=== PATIENT | male | born 1965 | race Hispanic/Latino ===

== ENCOUNTER 2018-10-08 10:23 | Emergency (ER) | payer MEDICARE, SELFPAY ==
[2018-10-08 10:25] VITALS: BP 215/102; PULSE 89; RESP 19; TEMP 36.2; O2SAT 98; BMI 33.6
--- NOTE | 2018-10-08 10:56 | ED.VISSUMM ---
- ER Visit Summary Date of Service: 10/08/18 Chief Complaint: Right eye swelling History of Present Illness: The patient is a 53 M presenting for evaluation secondary to right eye swelling. Patient reports that over the course last 3 days he has had progressive swelling of his right eye. He reports it started with his upper lid and is associated with a mild amount of pain and some chills. Denies any foreign bodies or chemical exposure. Patient states that he has been trying multiple different types of compresses including teabags, coffee, potatoes none of these seem to work. He denies any visual changes. Physical Examination: Vital signs notable for hypertension 215/102. Eye exam shows swelling of the patient's right upper and lower lids. No evidence of septal or preseptal cellulitis no pain with extraocular range of motion. Corneas normal to inspection. Pupils are normal. There is evidence of hordeolum with eversion of the patient's upper lid. Test Results: None indicated Emergency Department Course and Treatment: Patient presented secondary to eye swelling. Physical exam shows evidence of some blepharitis with a hordeolum. Patient will be treated with topical antibiotics. Patient was noted to be hypertensive, repeat blood pressure was found to be 156/107. Patient has a history of brain aneurysms with coiling, and is off of his antihypertensives I will place the patient on a course of lisinopril and strongly encouraged follow-up with primary care. Disposition: Discharge Impression: 1. Right-sided blepharitis with hordeolum 2. Hypertension This note was generated with [employer] dictation software. It may contain incorrect words, spelling, and punctuation that were not noted in review of the chart prior to signing ED Disposition - Plan for ED Patient: Disposition: Home or Assisted Living Chief Complaint: Eye Problem Diagnosis: Blepharitis of eyelid of right eye Instructions: ED Inflammation Eyelid Prescriptions: Lisinopril 5 mg PO DAILY #30 tab Referrals: Alvarado Adam MD [Primary Care Provider] - As soon as possible
--- NOTE | 2018-10-08 11:00 | ED.DCSUM_ITS ---
- ER Visit Summary Date of Service: 10/08/18 Chief Complaint: Right eye swelling History of Present Illness: The patient is a 53 M presenting for evaluation secondary to right eye swelling. Patient reports that over the course last 3 days he has had progressive swelling of his right eye. He reports it started with his upper lid and is associated with a mild amount of pain and some chills. Denies any foreign bodies or chemical exposure. Patient states that he has been trying multiple different types of compresses including teabags, coffee, potatoes none of these seem to work. He denies any visual changes. Physical Examination: Vital signs notable for hypertension 215/102. Eye exam shows swelling of the patient's right upper and lower lids. No evidence of septal or preseptal cellulitis no pain with extraocular range of motion. Corneas normal to inspection. Pupils are normal. There is evidence of hordeolum with eversion of the patient's upper lid. Test Results: None indicated Emergency Department Course and Treatment: Patient presented secondary to eye swelling. Physical exam shows evidence of some blepharitis with a hordeolum. Patient will be treated with topical antibiotics. Patient was noted to be hypertensive, repeat blood pressure was found to be 156/107. Patient has a history of brain aneurysms with coiling, and is off of his antihypertensives I will place the patient on a course of lisinopril and strongly encouraged follow- up with primary care. Disposition: Discharge Impression: 1. Right-sided blepharitis with hordeolum 2. Hypertension This note was generated with [employer] dictation software. It may contain incorrect words, spelling, and punctuation that were not noted in review of the chart prior to signing ED Disposition - Plan for ED Patient: Disposition: Home or Assisted Living Chief Complaint: Eye Problem Diagnosis: Blepharitis of eyelid of right eye Instructions: ED Inflammation Eyelid Prescriptions: Lisinopril 5 mg PO DAILY #30 tab Referrals: Alvarado Adam MD [Primary Care Provider] - As soon as possible
[2018-10-08 11:30] VITALS: BP 122/100
== END 2018-10-08 11:43 | disposition home or self-care (01) ==
PROVIDERS: Emergency Provider Emergency Medicine; Family Provider Family Medicine; PCP Family Medicine
DX: H01.00A Unspecified blepharitis right eye, upper and lower eyelids (principal); H00.011 Hordeolum externum right upper eyelid; I10 Essential (primary) hypertension; Z86.79 Personal history of other diseases of the circulatory system; Z79.899 Other long term (current) drug therapy
CPT/HCPCS: 99282

== ENCOUNTER 2019-02-21 13:08 | Emergency (ER) | payer MEDICARE, MEDICAID, SELFPAY ==
[2019-02-21 13:08] VITALS: BP 160/90; PULSE 109; RESP 18; TEMP 36.6; O2SAT 97; BMI 32.5
[2019-02-21 13:11] VITALS: TEMP 36.6
[2019-02-21] MEDS: Morphine 4 MG/ML Syringe IV (13:32)
[2019-02-21] MEDS: Ondansetron 4 MG/2 ML Vial IV (13:32)
--- NOTE | 2019-02-21 13:40 | RAD_ITS ---
STUDY: X-RAY - LEFT HAND REASON FOR EXAM: Male, 54 years old. Metal object injury 3 days ago with pain and swelling TECHNIQUE: 3 view(s) of the hand. COMPARISON: None. FINDINGS: There is joint space narrowing of the radiocarpal articulation consistent with degenerative arthrosis. Normal distal radioulnar joint. Normal visualized carpal bones. Normal carpal articulations Normal carpometacarpal articulation of the thumb. Normal second through fifth carpometacarpal joints. Normal metacarpi. Normal metacarpophalangeal joint of the thumb. 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 Normal proximal and distal phalanges of the thumb. Normal metacarpophalangeal joints of the second through fifth fingers. Normal proximal and distal interphalangeal joints of the second through fifth fingers. Normal phalanges of the second through fifth fingers. Soft tissue swelling. Remote deformity of the ulnar styloid. RAD/Hand Min 3 Views IMPRESSION: No acute osseous injury is evident. Electronically Signed: Pedro Perry MD at 13:57 EDT Tel , Service support ,
[2019-02-21] MEDS: Diphth,Pertuss(Acell),Tet Vac 0.5 ML Vial IM (14:26)
--- NOTE | 2019-02-21 14:38 | ED.DCSUM_ITS ---
History of Present Illness Chief Complaint: Cellulitis Informant: Patient, Significant Other Occurred: Days - 3 to 4 days ago Mechanism/Context: Injury, Puncture Wound Current Severity: 12/07 Maximum Severity: 06/09 Worsened by: Palpation Relieved by: rest Associated Symptoms: Loss of Funtion. Negative for: Parasthesia, Weakness Narrative: Patient is a 54-year-old [id number] male presents with puncture wound sole of the left thumb volar surface near the crease of the MCP joint. He believes there may be a retained metallic foreign body. He attempted to clip the area using nail clippers. Because of reported increased pain, swelling and redness he presents to the emergency department. He denies fever or chills. He is not diabetic. He is on no immunosuppressive meds. Tetanus Immunization: Unknown Prior similar symptoms: No Recent Illness/Hospitalization: No Past Medical History - Allergies and Home Meds Allergies/Adverse Reactions: Allergies No Known Allergies Allergy (Verified 02/21/19 13:10) Primary Care Physician: Luma Thomas DO [Primary Care Provider] - Surgical History: noncontributory Lives: Spouse/ Significant Other Smoking Status: Current every day smoker Alcohol: Rare Review of Systems General: Denies: Chills, Fever, Malaise, Sweats ENT: Denies: Bilateral ear pain, Rhinorrhea Cardiovascular: Denies: Chest pain, Palpitations Respiratory: Denies: Dyspnea, Cough, Dyspnea on exertion Gastrointestinal: Denies: Nausea, Vomiting, Diarrhea Musculoskeletal: Reports: Swelling, Extremity Pain, - - Swelling left thumb and hand radial side. Denies: Myalgias, Arthralgias, Neck pain, Back pain Skin: Reports: Rash. Denies: Wounds Neurological: Denies: Headache, Weakness, Parasthesia Hematologic: Denies: Easy bruising, Easy bleeding Allergy: Denies: Uticaria, Swelling of the mouth Physical Exam Vital Signs/Narrative: Vital Signs Temp Pulse Resp BP Pulse Ox 02/21/19 13:11 97.9 F 02/21/19 13:08 97.9 F 109 H 18 160/90 H 97 Left Elbow: Negative for: Abrasion, Contusion, Deformity, Edema, Hematoma, Limited ROM, - Left Forearm: Negative for: Abrasion, Contusion, Deformity, Edema, Hematoma, Limited ROM, - Left Wrist: Negative for: Abrasion, Contusion, Deformity, Edema, Hematoma, Limit ed ROM, - Left Hand: Edema, - - Patient has full range of motion of the left thumb without pain. There is cellulitis dorsal surface of the left thumb and radial side of the left hand. There is no lymphangitis. There is no epitrochlear x-ray lymphadenopathy. There is maceration of tissue volar surface. Two-point squamation is normal. Capillary refill is normal.. Negative for: Abrasion, Contusion, Deformity, Limited ROM Left Finger: Edema, - - Read description under left hand. Negative for: Abrasion, Contusion, Deformity, Limited ROM General: Well nourished, Well developed Head: Normocephalic, Atraumatic Eyes: Perrl, EOMI. Negative for: Pale conjunctiva, Scleral icterus, - Cardiovascular: Regular rate, Regular rhythm, No murmurs, Normal S1, Normal S2 Respiratory: No distress, CTA bilaterally, Chest nontender Skin: Normal color, Rash - Colitis dorsal surface left thumb and dorsal surface radial side of left hand Neurological: Alert, Oriented x3, Cranial nerves II-XII grossly intact, Normal Strength, Normal Sensation Psychological: Normal affect Diagnostic/Tx/Re-eval Chest X-Ray - ED: Read by ED Physician Three-view x-ray of the left thumb was obtained. There is soft tissue swelling with no subtenons air or foreign body noted. - Medical Decision Making Clinically patient does not have evidence of pyogenic arthritis or tenosynovitis. He does have evidence of cellulitis. Will obtain x-ray to rule out foreign body. Patient was informed of x-ray results. He was informed that he needs an I&D. Written consent was obtained. He was explained risk benefits and given opportunity ask questions. None were asked. Procedures Procedure(s): Patient was prepped draped sterile manner. The area was anesthetized by local infiltration. Incision was made with 15 blade. There was purulent drainage noted. There was also bloody drainage noted. Blunt dissection was undertaken with additional purulent material noted. Cavity was irrigated. Wick was placed. He will receive a dose of antibiotics prior to discharge. Size of cavity 4 cm x 2 cm x 0.5 cm, complex ED Disposition - Plan for ED Patient: Instructions: ED Abscess IandD, Discharge Instructions for Cellulitis Prescriptions: Hydrocodone Bitart/Apap 5-325 [[place] 5MG-325MG] 1 tab PO Q6H PRN PRN 3 Days #10 tab PRN Reason: Pain Smz/Tmp Ds [Bactrim Ds] 1 tab PO BID #14 tab Cephalexin [Keflex] 500 mg PO 4X/DAY #28 cap Referrals: Luma Thomas DO [Primary Care Provider] - Additional Instructions: Return in 2 days to have wound reevaluation and removal of wick. If you develop a fever greater than 100 or shaking chills before 2 days return sooner
[2019-02-21] MEDS: Cephalexin 250 MG Capsule 500 MG PO (15:10)
[2019-02-21] MEDS: HYDROcodone Bitartrate/Apap 5/325 Tablet PO (15:11)
[2019-02-21] MEDS: Smz/Tmp Ds Tablet 1 TABLET PO (15:11)
[2019-02-21 15:19] VITALS: RESP 18; TEMP 36.6
== END 2019-02-21 15:21 | disposition home or self-care (01) ==
LOC: ED 13:58
PROVIDERS: Emergency Provider Emergency Medicine; Family Provider Family Medicine; PCP Family Medicine
DX: L02.512 Cutaneous abscess of left hand (principal); L03.114 Cellulitis of left upper limb; S61.032A Puncture wound without foreign body of left thumb without damage to nail, initial encounter; X58.XXXA Exposure to other specified factors, initial encounter; Y93.9 Activity, unspecified; Y92.9 Unspecified place or not applicable; F17.200 Nicotine dependence, unspecified, uncomplicated
CPT/HCPCS: 10061; 10060; 73130; 90471; 90715; 96374; 96375; 99284; A4216; J2405

== ENCOUNTER 2019-02-23 11:50 | Emergency (ER) | payer MEDICARE, MEDICAID, SELFPAY ==
[2019-02-23 11:51] VITALS: BP 163/87; PULSE 96; RESP 18; TEMP 36.8; O2SAT 96; BMI 32.5
--- NOTE | 2019-02-23 12:35 | ED.VISSUMM ---
- ER Visit Summary Date of Service: 02/23/19 Chief Complaint: Wound check History of Present Illness: The patient is a 54 M with I&D 3 days ago presents for wound check. He is doing well he has no new complaints. Physical Examination: Is evaluated, he has an incision between the first and second digits, it was packed the packing is removed wound appears well there is no signs of cellulitis. Emergency Department Course and Treatment: Patient has a normal exam, I believe he is healing well he is on antibiotics I told him to continue him otherwise he can follow-up referred him. Discharge stable condition Impression: wound Check This note was generated with [employer] dictation software. It may contain incorrect words, spelling, and punctuation that were not noted in review of the chart prior to signing ED Disposition - Plan for ED Patient: Disposition: Home or Assisted Living Instructions: ED Wound Check Post Op No Infec Referrals: Kristofer Huang MD [STAFF PHYSICIAN] - 3-5 Days
== END 2019-02-23 12:51 | disposition home or self-care (01) ==
PROVIDERS: Emergency Provider Emergency Medicine; Family Provider Family Medicine; PCP Family Medicine
DX: Z48.00 Encounter for change or removal of nonsurgical wound dressing (principal); I10 Essential (primary) hypertension; Z79.899 Other long term (current) drug therapy; Z72.0 Tobacco use
CPT/HCPCS: 99282

== ENCOUNTER → 2019-06-16 06:22 | Outpatient (CLI) | payer MEDICARE, MEDICAID, SELFPAY ==
[2019-05-21 09:47] VITALS: BMI 31.1
--- NOTE | 2019-06-16 13:27 | STRESSREP ---
Stress Test Report Date: 06-16-19 Procedure: Exercise tolerance test/imaging study Indications: Chest pain Consent: Per the patient Procedure: The patient exercised on a Andrew protocol for 9 minutes completing Stage III achieving a peak heart rate of 144 bpm (86 % predicted maximal heart rate) with a peak blood pressure 232/90 mmHg and a peak MET capacity of 10 METs. The baseline ECG demonstrated normal sinus rhythm. The peak exercise ECG demonstrated approximately 1 mm of horizontal to downsloping ST segment depression in leads II, III, and aVF with resolution towards baseline beginning by approximately 1 minute in recovery. There were no cardiac dysrhythmias pretest, during exercise, or recovery. The functional capacity was considered good. There was no complaint of chest discomfort during exercise or recovery. The examination was discontinued secondary to dyspnea. Impression: 1. Technically adequate (percent predicted maximal heart rate greater than 85%) exercise tolerance test 2. Peak exercise ECG with approximately 1 mm of horizontal to downsloping ST segment depression in leads II, III, and aVF with resolution towards baseline beginning by approximately 1 minute in recovery 3. There were no cardiac dysrhythmias pretest, during exercise, or recovery 4. Nuclear images pending Myocardial perfusion imaging study: Technique: The patient was injected with 14.3 mCi of technetium 99m Cardiolite and subsequently rest SPECT Cardiolite nuclear imaging was obtained in the horizontal long, vertical long, and short axis views. The patient exercised on a Andrew protocol for 9 minutes completing Stage III achieving a peak heart rate of 144 bpm (86 % predicted maximal heart rate) with a peak blood pressure 232/90 mmHg and a peak MET capacity of 10 METs. The patient was injected with 44.1 mCi of technetium 99m Cardiolite and subsequently stress SPECT Cardiolite nuclear imaging was obtained in the horizontal long, vertical long, and short axis views. A gated Cardiolite study at peak stress was obtained. Interpretation: Rest and stress SPECT Cardiolite nuclear imaging status post realignment, normalization, and attenuation correction, demonstrates the appearance of relative uniform tracer uptake and myocardial perfusion appearing within normal limits. There is end systolic thickening and brightening. The gated Cardiolite study demonstrates myocardial thickening and inward wall motion. The reported LVEF is 47 %. Impression: 1. Rest and stress SPECT Cardiolite nuclear imaging demonstrate relative uniform tracer uptake and myocardial perfusion appearing within normal limits. 2. The gated Cardiolite study reports an LVEF of 47 %. This note was generated with [employer] dictation software. It may contain incorrect words, spelling, and punctuation that were not noted in checking the note before signing.
== END ==
PROVIDERS: Family Provider Family Medicine; PCP Family Medicine; Referring Provider Internal Medicine Cardiovascular Disease; Visit Provider Internal Medicine Cardiovascular Disease
DX: R07.9 Chest pain, unspecified (principal); R00.2 Palpitations; I10 Essential (primary) hypertension; I34.0 Nonrheumatic mitral (valve) insufficiency
CPT/HCPCS: 78452; 93017; A9500; A4216

== ENCOUNTER 2019-06-19 10:09 | Emergency (ER) | payer MEDICARE, MEDICAID, SELFPAY ==
[2019-06-19 09:38] VITALS: BMI 31.1
[2019-06-19 10:11] VITALS: BP 170/97; PULSE 92; RESP 16; TEMP 36.6; O2SAT 98; BMI 31.6
--- NOTE | 2019-06-19 10:36 | RAD_ITS ---
STUDY: X-RAY - LEFT FOOT CLINICAL: Male, 54 years old. Pain TECHNIQUE: 3 view(s) of the foot. COMPARISON: None. FINDINGS: Normal talus, calcaneus, and tarsal bones. Normal visualized subtalar, talonavicular, calcaneocuboid, tarsal and tarsometatarsal articulations. Normal metatarsi. Normal metatarsophalangeal joint of the great toe. Normal tibial and fibular sesamoid bones. Normal interphalangeal joint of the great toe. Normal phalanges of the great toe. Normal second through fifth metatarsophalangeal joints. Normal interphalangeal joints and phalanges of the lesser toes. The soft tissue structures are unremarkable. No plain film evidence of foreign body RAD/Foot min 3 Views IMPRESSION: Normal x-ray examination of the foot. Electronically Signed: Nickolas Ortega MD at 11:01 EDT , Service support ,
--- NOTE | 2019-06-19 10:45 | RAD_ITS ---
STUDY: X-RAY - RIGHT KNEE REASON FOR EXAM: Male, 54 years old. Pain, stiffness TECHNIQUE: 4 view(s) of the knee. COMPARISON: None. FINDINGS: Normal visualized distal femur. Normal visualized proximal tibia and fibula. Normal proximal tibiofibular articulation. There is mild degenerative arthrosis of the medial femorotibial compartment. Normal lateral femorotibial compartment. Normal patellofemoral articulation. The soft tissue structures are unremarkable. RAD/Knee 4 or More Views IMPRESSION: Mild medial compartment arthrosis, no demonstrated fracture or suspicious osseous lesion Electronically Signed: Nickolas Ortega MD at 11:00 EDT , Service support ,
--- NOTE | 2019-06-19 11:04 | ED.DCSUM_ITS ---
History of Present Illness Chief Complaint: Lower Extremity Injury Informant: Patient Onset: Yesterday Narrative: Patient presents to the ED claiming left foot trauma. Yesterday, while wearing his working boots he stepped on 3 nails and claims that the nails pierced thr ough the shoes and pierced his plantar aspect of his left foot. He states that since injury the area has become more swollen and painful. He states that he did recently have tetanus updated approximately 2 months ago after another injury. Patient is also inquiring about right knee pain for the last week. He states that it has been going on for a little bit longer, however a week ago he had a exercise stress test which exacerbated this pain. He has been wearing a knee sleeve since. He denies any blunt trauma or falls. Past Medical History - Allergies and Home Meds Allergies/Adverse Reactions: Allergies No Known Allergies Allergy (Verified 06/19/19 10:11) Primary Care Physician: Luma Valenzuela DO [Primary Care Provider] - Surgical History: noncontributory Smoking Status: Current every day smoker Review of Systems General: Denies: Chills, Fever, Sweats Eyes: Denies: Visual changes - bilaterally, Diplopia ENT: Denies: Rhinorrhea, Sore throat Cardiovascular: Denies: Chest pain, Palpitations Respiratory: Denies: Dyspnea, Cough, Dyspnea on exertion Gastrointestinal: Denies: Abdominal pain, Nausea, Vomiting, Diarrhea, Melena, Hematochezia Genitourinary: Denies: Dysuria, Hematuria, Frequency Musculoskeletal: Reports: - - Left foot pain, right knee pain.. Denies: Back pain, Extremity Pain Skin: Denies: Rash, Wounds Neurological: Denies: Headache, Weakness, Numbness Psych: Denies: Suicidal thoughts Physical Exam Vital Signs/Narrative: Vital Signs Temp Pulse Resp BP Pulse Ox 06/19/19 10:11 98 F 92 16 170/97 H 98 General: Well nourished, Well developed, No Acute Distress Head: Normocephalic, Atraumatic Eyes: Perrl, EOMI ENT: Moist mucous membranes, No rhinorrhea Neck: Supple, Nontender Cardiovascular: Regular rate, Regular rhythm, No murmurs Respiratory: No distress, CTA bilaterally, Chest nontender Abdomen: Soft, Nontender, Nondistended, Normal bowel sounds Back: Nontender, Normal Inspection Extremities: Nontender, No edema, - - Tenderness to palpation over plantar aspect of left foot over the forefoot. I do not appreciate any erythema or significant edema. No obvious entry point of reported nail wounds. No fluctuance. Crepitus with range of motion of right knee. Full active and passive range of motion of right knee. No ligamentous laxity. No bony tenderness. Skin: Normal color, No rash Neurological: Alert, Oriented x3, Cranial nerves II-XII grossly intact, Normal Strength, Normal Sensation Psychological: Normal affect, Normal Mood Diagnostic/Tx/Re-eval - Medical Decision Making Patient presents to the ED with primary complaint of trauma to his left foot last night. Physical exam is fairly unremarkable. There is one area on the plantar aspect of his left foot which may have been an entry point for suspected needle puncture. His tetanus is up-to-date. No significant signs or symptoms of cellulitis. X-ray of left foot and right knee are unremarkable. At this time, I think it is safe for the patient be discharged home. His reports of nail puncture while wearing a shoe he will be placed on a course of prophylactic ciprofloxacin. He was advised to follow-up with PCP if symptoms persist or worsen. Educated on signs/symptoms to return to the ED. He was provided discharge instructions and agreeable to plan. Impression: Left foot puncture wound. Right knee pain. Disposition: Home stable ED Disposition - Plan for ED Patient: Disposition: Home or Assisted Living Diagnosis: Puncture wound of foot Instructions: PUNCTURE WOUND, Foot Prescriptions: Ciprofloxacin [Cipro] 500 mg PO BID #14 tab Prescription Printed Referrals: Luma Valenzuela DO [Primary Care Provider] -
[2019-06-19] MEDS: Ciprofloxacin 250 MG Tablet 500 MG PO (12:18)
[2019-06-19] MEDS: Acetaminophen 500 MG Tablet 1000 MG PO (12:18)
[2019-06-19 12:20] VITALS: BP 137/62; PULSE 84; RESP 16; O2SAT 97
== END 2019-06-19 12:22 | disposition home or self-care (01) ==
PROVIDERS: Emergency Provider Physician Assistant; Family Provider Family Medicine; PCP Family Medicine
DX: S91.332A Puncture wound without foreign body, left foot, initial encounter (principal); M25.561 Pain in right knee; W45.0XXA Nail entering through skin, initial encounter; Y93.9 Activity, unspecified; Y92.9 Unspecified place or not applicable; F17.200 Nicotine dependence, unspecified, uncomplicated; R94.39 Abnormal result of other cardiovascular function study; R07.9 Chest pain, unspecified; I10 Essential (primary) hypertension
CPT/HCPCS: 36415; 71046; 73564; 73630; 80048; 85027; 85610; 85730; 99283

== ENCOUNTER 2019-06-23 08:12 | Day surgery (SDC) | payer MEDICARE, MEDICAID, SELFPAY ==
[2019-05-21 09:47] VITALS: BMI 31.1
--- NOTE | 2019-06-19 09:52 | RAD_ITS ---
STUDY: X-RAY CHEST REASON FOR EXAM: Male, 54 years old. Pre-op for heart catheter TECHNIQUE: PA and lateral views of the chest. COMPARISON: 2011 FINDINGS: Monitoring devices noted over the heart The lungs are clear and expanded. There is no demonstrated pleural abnormality. Normal size heart. Normal mediastinum and chester. Normal visualized pulmonary arteries. Normal visualized aortic arch and descending thoracic aorta. Normal visualized thoracic spine. Normal visualized ribs, clavicles, and shoulders. There is no demonstrated abnormality of the visualized soft tissue structures of the upper abdomen. RAD/Chest PA and Lateral IMPRESSION: Normal x-ray examination of the chest. Electronically Signed: Nickolas Ortega MD at 10:34 EDT , Service support ,
[2019-06-19 09:58] LABS: Hematocrit 42.2 % (40-54); Mean Corp Hgb Conc 33.2 g/dL (32-36); Mean Corpuscular Hgb 33.2 pg (27.0-32.0); Mean Platelet Vol. 9.3 fl (6.2-12.0); Platelet Count 290 K/mm3 (150-450); RBC Distribution Width CV 11.6 % (11.6-14.6); RBC Distribution Width SD 42.4 fl (35.1-43.9); Red Blood Count 4.22 M/mm3 (4.6-6.2); White Blood Count 11.5 K/mm3 (4.4-11.0)
[2019-06-19 10:07] LABS: Prothrombin Time (Protime)PT. 12.8 SECONDS (11.7-14.9)
[2019-06-19 10:08] LABS: Partial Thromboplast Time 29.2 Seconds (24.1-36.2)
[2019-06-19 10:26] LABS: Anion Gap 6 (5-15); BUN 15 mg/dL (7-18); BUN/Creat Ratio 17.2 RATIO (10-20); Calcium,Total 8.9 mg/dL (8.5-10.1); Chloride 109 mmol/L (98-107); Creatinine, Serum 0.87 mg/dL (0.70-1.30); EST Glomerular Filtration Rate 97 mL/min (>60); Est Glom Filt Rate - Afr Amer 117 mL/min (>60); Glucose 106 mg/dL (74-106); Potassium 3.9 mmol/L (3.5-5.1); Sodium Level 141 mmol/L (136-145)
--- NOTE | 2019-06-23 07:59 | PCM.HP.BLA ---
Problem List (1) Abnormal stress test Status: Acute (2) Chest pain Status: Chronic (3) Non-rheumatic mitral regurgitation Status: Chronic (4) Essential hypertension Status: Chronic (5) Tobacco use disorder Status: Chronic (6) Brain aneurysm Status: Chronic Comment: x2 History and Physical Date of Admission: 06/23/19 [facility] [address] [place] [address] OFFICE VISIT Date of Service: 05/21/19 MR#: [id number] Acct: [id number] Name: JESUS DUNBAR Rep #: [id number] : 1965 Provider: Derek Paula MD Age/Sex: 54/M Location: [facility] Status: Signed [facility] History of Present Illness Details: This is a 54-year-old white male who presents today for cardia vascular consultation based upon concerns of chest discomfort and palpitations and an abnormal transthoracic echocardiogram superimposed upon a history of underlying cerebral vessel aneurysm status post coil type procedures. He has had a history of chest discomfort. He states his chest feels tight and with increased pressure at times. It radiates to his left scapular area. He notes sometimes if he belches he feels better. The symptoms wax and wane. They may or may not be associated with shortness of breath at times. He has had no acute nausea emesis or diaphoresis. There is been no near syncope or syncope. He is undergone noninvasive evaluation in the past. In 2008 he had a treadmill stress test performed. According to report this was negative. In [address] scan performed. According to report he had an unremarkable noncontrast CT scan examination of the chest. More recently in April of this year he had through the [facility] system 80 transthoracic echocardiogram performed. His left ventricle was normal with an LVEF of 56%. He had mild concentric LVH. There was report of mild MR. He did have an ECG performed today in the office. He was noted to have sinus rhythm with no acute ECG abnormalities. He states he also has palpitations. He notes he wakes up from sleep with his heart going fast. This does not occur every 24-48 hours. He believes it is been occurring monthly though for potentially the last 3 months. He states he was evaluated for his cerebral aneurysm last year at [facility] in [place]. He states he is gone through multiple invasive studies. He was told last year that everything was stable after many years of observation and he required no further follow-up. He was told he could resume activities as tolerated. Intake Vital Signs 05/21/19 Height 5 ft 9 in 05/21/19 Weight: 211 lb 05/21/19 Body Mass Index (BMI) 31.1 05/21/19 Blood Pressure 130/88 H 05/21/19 Blood Pressure Location Lt brachial 05/21/19 Respiratory Rate 16 05/21/19 Pulse Rate 80 05/21/19 Pulse Source Auscultation Intake Visit Reasons: ENLARGED HEART/ REF. SHEETZ Heeler Required: No Accompanied by: Allergies No Known Allergies Allergy (Verified 05/21/19 09:47) Medications Atorvastatin Calcium 40 mg PO QHS 02/21/19 [History Confirmed 05/21/19] Clopidogrel Bisulfate [Clopidogrel] 75 mg PO DAILY 02/21/19 [History Confirmed 05/21/19] Lisinopril 40 mg PO DAILY 02/21/19 [History Confirmed 05/21/19] [facility] Medical History Brain aneurysm (Chronic) Non-rheumatic mitral regurgitation (Chronic) Essential hypertension (Chronic) Tobacco use disorder (Chronic) History of intracranial hemorrhage (Inactive) Family History Father CAD (coronary artery disease) Myocardial infarction Brain aneurysm Brother Brain aneurysm Social History (Updated 05/21/19 @ 13:03 by Derek Paula MD) Smoking Status: Current every day smoker alcohol intake: current details: occasional substance use type: does not use caffeine: No ROS Const Const: Negative for fatigue, weakness, frequent falls, excessive sweating, weight gain or weight loss Eyes Eyes: Negative for transient loss of vision, blurry vision or change in vision ENT ENT: Negative for dizziness or balance problems Cardio Chest Pain: No Palpitations: Yes (occasional; wakes from sleep) feels like its: fast Edema: None Muscle aches with walking: None Resp Respiratory: Positive for SOB with activity (occasional climbing stairs); negative for SOB at rest GI GI: Negative vomiting or vomiting blood/hematemesis : Negative for hematuria Musc Musc: Positive for muscle aches/ myalgia (Lt shoulder pain; under shoulder blade); negative for muscle weakness, joint pain or balance problems Skin Skin: Negative non-healing lesions or rash Neuro Neuro: Negative for dizziness, lightheadedness, orthostatic symptoms, frequent falls, weakness or blurry vision Jeremy Hematologic/Lymphatic: Negative for easy bleeding Endo Endo: Negative for fatigue or excessive sweating Psych Psych: Negative for anxiety or depression Allergy Allergy/Immunology: Negative for hives, Negative for rash Cardiology Exam Const Appearance: cooperative, healthy appearing, comfortable, no acute distress, well developed and well groomed Nutritional Appearance: overweight Orientation: alert, awake and oriented x3 Head Head: normal to inspection, normocephalic and atraumatic Ears: hearing grossly normal bilaterally Nose: external nose normal Face and Sinus: face symmetric Mouth: oral mucosae normal Teeth and gingiva: fair dentition Eyes Eyelids: eyelids normal Conjunctivae: conjunctivae normal Pupils: PERRL EOM: EOM intact bilaterally Neck Neck: normal visual inspection and full ROM Carotids: normal carotid upstroke Chest Chest inspection: normal inspection of the chest, symmetric chest movement and normal respiratory effort Auscultation: Bilateral: Clear to Auscultation Cardio Palpation: normal PMI Rate: regular rate Rhythm: regular rhythm Heart sounds: S1 normal and S2 normal GI GI: normal to inspection, soft and bowel sounds present Neuro General: alert, awake, oriented x3 and moves all extremities Skin Skin: no rashes or lesions noted Extremities Pulses: Normal: Right Radial Pulse, Left Radial Pulse Lower Extremity Edema: None: Bilateral Psych Psychological: normal affect Assessment & Plan 1. Nonrheumatic mitral valve insufficiency I34.0 Plan At the present time he will undergo further evaluation. This will include the stress imaging study. Depending upon the findings he may or may not need further cardiac diagnostic studies and/or therapeutic intervention. Orders Orders: 12 [address] [facility] Today 30 Day Event Recorder [employer] Games-Up Today Nuclear Stress Test - Treadmil Today 2. Palpitations R00.2 Plan He will have a 30-day ambulatory event monitor and attempt to correlate his symptoms with his underlying cardiac rate and rhythm. Orders Orders: 30 Day Event Recorder Hook-Up Today Nuclear Stress Test - Treadmil Today 3. Essential hypertension I10 Plan He will continue medical management. Orders Orders: 12 Lead [address] performed by [facility] Today 30 Day Event Recorder [employer] Today Nuclear Stress Test - Treadmil Today 4. Brain aneurysm I67.1 x2 Plan He states he no longer requires follow-up with his neurology/neurosurgical/interventional physicians regarding this. 5. Tobacco use disorder F17.200 Plan He was encouraged to avoid tobacco intake. Plan Detail Other Orders Orders: 30 Day Event Recorder Hook-Up Today R07.9 Nuclear Stress Test - Treadmil Today R07.9 Additional Comments The above was discussed with the patient and his spouse. He was agreeable to this approach. Thank you for allowing me to participate in the care of your patient. Please don't hesitate to call if any issues arise. This note was generated using a voice recognition system and there may be incorrect words, spelling or punctuation that were not noted when reviewing the office note prior to saving. Follow Up 6 Weeks (PFM/MM/) Coding Level of Care Code Off vis,new,level 5 Diagnoses Nonrheumatic mitral valve insufficiency I34.0 Palpitations R00.2 Essential hypertension I10 Brain aneurysm I67.1 Tobacco use disorder F17.200 Coding Level of Care Code Off vis,new,level 5 Diagnoses Nonrheumatic mitral valve insufficiency I34.0 Palpitations R00.2 Essential hypertension I10 Brain aneurysm I67.1 Tobacco use disorder F17.200 Supplemental Info Supplemental Information Diagnostics Electrocardiogram 05/21/19 05/21/19 1303 <Electronically signed by Derek Paula MD> Date Derek Paula MD Cosigner Signature: Date (if applicable) CC: Luma Thomas, ~ I have examined the patient the following changes are noted: The patient has undergone further evaluation with an exercise tolerance test/imaging study. The results are as noted below. Stress Test Report Date: 06-16-19 Procedure: Exercise tolerance test/imaging study Indications: Chest pain Consent: Per the patient Procedure: The patient exercised on a Andrew protocol for 9 minutes completing Stage III achieving a peak heart rate of 144 bpm (86 % predicted maximal heart rate) with a peak blood pressure 232/90 mmHg and a peak MET capacity of 10 METs. The baseline ECG demonstrated normal sinus rhythm. The peak exercise ECG demonstrated approximately 1 mm of horizontal to downsloping ST segment depression in leads II, III, and aVF with resolution towards baseline beginning by approximately 1 minute in recovery. There were no cardiac dysrhythmias pretest, during exercise, or recovery. The functional capacity was considered good. There was no complaint of chest discomfort during exercise or recovery. The examination was discontinued secondary to dyspnea. Impression: 1. Technically adequate (percent predicted maximal heart rate greater than 85%) exercise tolerance test 2. Peak exercise ECG with approximately 1 mm of horizontal to downsloping ST segment depression in leads II, III, and aVF with resolution towards baseline beginning by approximately 1 minute in recovery 3. There were no cardiac dysrhythmias pretest, during exercise, or recovery 4. Nuclear images pending Myocardial perfusion imaging study: Technique: The patient was injected with 14.3 mCi of technetium 99m Cardiolite and subsequently rest SPECT Cardiolite nuclear imaging was obtained in the horizontal long, vertical long, and short axis views. The patient exercised on a Andrew protocol for 9 minutes completing Stage III achieving a peak heart rate of 144 bpm (86 % predicted maximal heart rate) with a peak blood pressure 232/90 mmHg and a peak MET capacity of 10 METs. The patient was injected with 44.1 mCi of technetium 99m Cardiolite and subsequently stress SPECT Cardiolite nuclear imaging was obtained in the horizontal long, vertical long, and short axis views. A gated Cardiolite study at peak stress was obtained. Interpretation: Rest and stress SPECT Cardiolite nuclear imaging status post realignment, normalization, and attenuation correction, demonstrates the appearance of relative uniform tracer uptake and myocardial perfusion appearing within normal limits. There is end systolic thickening and brightening. The gated Cardiolite study demonstrates myocardial thickening and inward wall motion. The reported LVEF is 47 %. Impression: 1. Rest and stress SPECT Cardiolite nuclear imaging demonstrate relative uniform tracer uptake and myocardial perfusion appearing within normal limits. 2. The gated Cardiolite study reports an LVEF of 47 %. Status post review of the patient's case it was recommended to proceed with further evaluation with diagnostic cardiac catheterization. The procedure risks have been discussed with the patient. He is agreeable to this approach. This note was generated using a voice recognition system and there may be incorrect words, spelling or punctuation that were not noted when reviewing the office note prior to saving.
[2019-06-23 08:47] VITALS: BMI 31.8
--- NOTE | 2019-06-25 09:59 | CL.D_ITS ---
Patient Name: JESUS DUNBAR Study Date: 06/23/2019 Performing: Derek Paula MD Ht: 68.89 inches 175 cm : 1965 Wt: 209.48 lbs 95.02 kg Age: 54 Gender: male BSA: 2.1 PROCEDURE(S) PERFORMED XM02-FXQ/COR/LV CLINICAL PROFILE AND INDICATIONS Indications: Suspected CAD Heart Failure: None Stress/Imaging Standard Exercise Stress Test: Yes Result: PositiveStress Test with SPECT MPI: Neg ative Angina Classification Anginal Classification w/in 2 Weeks: CCS III CAD Presentations: Stable angina. CONCLUSIONS Elevated Left Ventricular End Diastolic Pressure Normal LV size, wall motion,and systolic function LVEF: by LV gram 60 % Normal coronary arteries RECOMMENDATIONS Risk factor modification Medical therapy DESCRIPTION OF PROCEDURE The patient arrived to the procedure lab. The risks and benefits of the procedure as well as a full d escription of our services here and current unavailability of surgical backup were fully explained to the patient and/or their significant other prior to the catheterization. The Timeout was completed, verifying the correct patient and procedure. The patient's procedural site was prepped and draped in the usual fashion. Local anesthetic was given subcutaneously to right radial region with Lidocaine 2% . Using a modified Seldinger technique, arterial access was obtained via the right radial artery, a 6 Fr sheath was inserted. Left Coronary Artery selective angiography was performed in multiple views u sing a 5 Fr. 4.0 [place] catheter. Right Coronary Artery selective angiography was then performed in mu ltiple views using a 5 Fr. 4.0 [place] catheter. Left Ventriculography was performed in FORTE projection using a 5 Fr. [place] catheter. LV to AO pullback pressures were then recorded.The arterial sheath was pulled and a TR Band was applied for hemostasis CORONARY ANGIOGRAPHY DOMINANCE: Left Dominant LEFT HEART ASSESSMENT Left Ventricular Ejection Fraction: by LV Gram 60 % Normal LV wall motion Elevated Left Ventricular End Diastolic Pressure LVEDP: 39 mmHg LEFT MAIN: Angiographically normal LEFT ANTERIOR DESCENDING ARTERY: Angiographically normal CIRCUMFLEX ARTERY: Angiographically normal RIGHT CORONARY ARTERY: Angiographically normal VALVE FINDINGS: Normal Aortic Valve function Normal Mitral Valve function AORTIC ROOT: Angiographically normal COMPLICATIONS No Complications PROCEDURE MEDICATIONS Versed 1 mg IV Fentanyl 50 mcg IV Oxygen: 2 L/min via nasal cannula Heparin given IA 06/23/2019 10:01:10 Verapamil 2.5mg, Ntg 100mcgs, 2000 units of Heparin given IA 06/23/2019 10:01:10 SUMMARY OF HEMODYNAMIC DATA Time AIR REST ECG 08:50:07 AO 147/102 (125) SA 10:06:10 LV 167/5, 37 10:12:34 LV 167/6, 39 10:12:40 LV 165/7, 38 10:13:21 LV 167/6, 36 10:13:28 LVp 166/4, 36 10:13:39 AOp 164/96 (126) 10:13:44 Signed By Derek Paula MD On 06/23/2019 10:32:16 AM Derek Paula MD
== END 2019-06-23 12:05 | disposition home or self-care (01) ==
LOC: CLSP 08:13
PROVIDERS: Family Provider Family Medicine; PCP Family Medicine; Referring Provider Internal Medicine Cardiovascular Disease; Visit Provider Internal Medicine Cardiovascular Disease
DX: R94.39 Abnormal result of other cardiovascular function study (principal); R07.89 Other chest pain; R00.2 Palpitations; I34.0 Nonrheumatic mitral (valve) insufficiency; I67.1 Cerebral aneurysm, nonruptured; I10 Essential (primary) hypertension; Z79.02 Long term (current) use of antithrombotics/antiplatelets; Z79.899 Other long term (current) drug therapy; F17.200 Nicotine dependence, unspecified, uncomplicated
CPT/HCPCS: 36415; 71046; 80048; 85027; 85610; 85730; 93458; 99152; 99153; J7040; Q9967; C1769; C1894

== ENCOUNTER 2019-12-01 12:41 | Emergency (ER) | payer MEDICARE, MEDICAID, SELFPAY ==
[2019-07-07 08:31] VITALS: BMI 32.6
[2019-12-01 12:42] VITALS: BP 166/101; PULSE 108; RESP 16; TEMP 36.8; O2SAT 94; BMI 33.7
== END 2019-12-01 15:03 | disposition left against medical advice (07) ==
LOC: ED 13:43
PROVIDERS: Emergency Provider Emergency Medicine; PCP Family Medicine
DX: Z53.21 Procedure and treatment not carried out due to patient leaving prior to being seen by health care provider (principal)

== ENCOUNTER 2022-02-08 11:06 | Emergency (ER) | payer MEDICARE, SELFPAY ==
[2022-02-08 11:07] VITALS: BP 167/86; PULSE 94; RESP 14; TEMP 36.7; O2SAT 96; BMI 29.6
--- NOTE | 2022-02-08 11:24 | EDS_ITS ---
HPI <SALVADOR Lew - Last Filed: 02/08/22 11:33> History of Present Illness Chief Complaint: Eye Problem Narrative Narrative: 57-year-old male with history of hypertension, brain aneurysm, hyperlipidemia, tobacco use presents the emergency department with a red right eye. Patient states he woke up 2 days ago and noticed that the white of his eye was red on the inner part of his right eye. Over the last couple days, patient was lifting heavy furniture helping someone move, patient also drank heavily, was not taking his medications as prescribed and was having spikes in his blood pressure, as well as smoking marijuana and having coughing fits. Patient denies any visual changes, patient denies any headache, nausea vomiting. Patient denies any weaknesses in upper or lower extremities. PFSH <SALVADOR Lew - Last Filed: 02/08/22 11:33> PFSH Medical History (Updated 02/08/22 @ 11:32 by SALVADOR Lew) Brain aneurysm Essential hypertension History of intracranial hemorrhage Non-rheumatic mitral regurgitation Tobacco use disorder Home Medications atorvastatin 40 mg PO QHS 02/21/19 [History Last Taken Unknown] clopidogrel 75 mg PO DAILY 02/21/19 [History Last Taken 06/23/19] lisinopril 40 mg PO DAILY 02/21/19 [History Last Taken 06/23/19] Allergy/AdvReac Type Severity Reaction Status Date / Time No Known Allergies Allergy Verified 02/08/22 11:09 Family History Father CAD (coronary artery disease) Myocardial infarction Brain aneurysm Brother Brain aneurysm Surgical History History of left heart catheterization (LHC) (~06/25/19) Social History (Updated 07/07/19 @ 11:15 by Maureen LOTT, PA) Smoking Status: Unknown if ever smoked alcohol intake: current details: occasional substance use type: does not use caffeine: No ROS <SALVADOR Lew - Last Filed: 02/08/22 11:33> ROS ED ROS Narrative Constitutional: Negative for fever, chills, weight loss, weakness Eyes: Negative for vision loss, vision change, double vision ENT: Negative for any sore throat, ear pain, congestion. Positive for redness to the right eye Cardiovascular: Negative for any chest pain, tightness, palpitations, racing heartbeat Respiratory: Negative for any cough, sputum production, hemoptysis, shortness of breath, shortness of breath on exertion, orthopnea Gastrointestinal: Negative for any abdominal pain, nausea, vomiting, diarrhea, constipation, blood in stool, blood in vomit : Negative for any urinary frequency, incontinence, dysuria, retention, blood in urine Muscle skeletal: Negative for any muscle joint pain, stiffness, myalgias, arthralgias, neck pain, back pain Neurological: Negative for any headache, dizziness, syncope, numbness or tingling Skin: Negative for any rashes, lumps, itching, abrasions, lacerations Psychiatric: Negative for any depression, anxiety, stress, suicidal ideation, homicidal ideation Hematologic: Negative for any easy bruising, excessive bruising, easy bleeding Allergies: Negative for any eczema, hives, rash EXAM <SALVADOR Lew - Last Filed: 02/08/22 11:33> Physical Exam Narrative Exam Narrative: Vital signs reviewed. HEET: Head normocephalic atraumatic, TMs clear bilaterally. Posterior pharynx is clear, moist mucous membranes. Nares clear bilaterally. Pupils are equal round reactive to light. Negative for any hematoma, septal hematoma. Patient does have what appears to be a subconjunctival hemorrhage to the medial aspect of the right eye. EOMs are intact. Patient has no pain, visual acuity was unremarkable. Neck: Supple with no lymphadenopathy or tenderness. No signs of meningismus, negative jolt sign. Cardiac: Regular rate and rhythm no murmurs gallops or rubs, equal peripheral pulses bilaterally. Respiratory: Lungs clear to auscultation bilaterally. No chest tenderness. Abdomen: Soft, nontender, nondistended. No abdominal bruit or pulsatile masses. No hepatosplenomegaly Extremities: No peripheral edema, no signs of gross trauma or deformity. Active full range of motion of all extremities. Neuro: Cranial nerves II through XII intact, no focal neurological deficits. Skin: Clean dry and intact with no rash, purpura, petechiae, vesicles or pustules. Backslash flank: No CVA tenderness, no midline spinal tenderness, no deformity. Psych: Normal mood and affect. No SI, HI or acute psychosis. Const Vital Signs: 02/08/22 11:07 Temperature 98.0 F Temperature Source Temporal Pulse Rate 94 Respiratory Rate 14 Blood Pressure 167/86 H Blood Pressure Mean 113 Pulse Ox 96 Oxygen Delivery Method Room Air Positive well nourished and well developed General Appearance ED: well developed [facility] <SALVADOR Lew - Last Filed: 02/08/22 11:33> [facility] Narrative Medical decision making narrative: Patient appears well, patient appears nontoxic, vital signs are stable. Patient presents to the emergency department with complaints of a red eye that is concerning. Patient's physical examination is consistent with a conjunctival hemorrhage, patient did multiple things of the last couple days it could have caused this. This includes heavy lifting, heavy drinking, his blood pressure medicine properly. Patient feels much better after evaluation. Visual acuity was obtained, this was normal. Patient instructed to stop smoking marijuana, he instructed take his blood pressure medicine as prescribed. Instructed to follow-up with his PCP. Patient stable for discharge <Jae Willis MD - Last Filed: 02/08/22 12:04> [facility] Narrative Medical decision making narrative: I have personally performed a face to face assessment of the patient and have reviewed the FRANCISCO Note. I performed a substantive portion of the visit including all aspects of the following. My quintanilla findings include: History is lifting heavy objects, coughing after smoking, history of high blood pressure and Plavix use. Noticed redness to right medial eye yesterday. Exam is afebrile. Vital signs noted. Positive subconjunctival hemorrhage right medial sclera. PERRL, EOMI Medical Decision Making: I do not feel that imaging is indicated. Patient was reassured. He was told not to forego his antihypertensives. Follow-up primary care. Other additions or changes: [None] Discharge Plan Triage Chief Complaint: Eye Problem ED Midlevel Provider: Derek Lyn ED Provider: Jae Willis Dx/Rx/DC Orders Clinical Impression: Subconjunctival hemorrhage, non-traumatic Instructions: ED Subconjunctival Hemorrhage Prescriptions: No Action atorvastatin 40 MG tablet 40 mg PO QHS RF: 0 clopidogrel 75 MG tablet 75 mg PO DAILY RF: 0 lisinopril 40 MG tablet 40 mg PO DAILY RF: 0 Primary Care Provider: Luma Valenzuela Referrals: Luma Valenzuela DO [Primary Care Provider] - Activity Restrictions/Additional Instructions: Please take your blood pressure medicine as prescribed. Please follow-up with your PCP. Print Language: Pakistani Disposition Disposition: Home, Self Care Discharge Date/Time: 02/08/22 11:56
[2022-02-08 11:56] VITALS: BP 155/76; PULSE 72; RESP 14; TEMP 36.9; O2SAT 100
== END 2022-02-08 11:56 | disposition home or self-care (01) ==
LOC: ED 11:52
PROVIDERS: Emergency Provider Emergency Medicine; PCP Family Medicine; Visit Provider Emergency Medicine
DX: H11.31 Conjunctival hemorrhage, right eye (principal); F12.10 Cannabis abuse, uncomplicated; E78.5 Hyperlipidemia, unspecified; I10 Essential (primary) hypertension; Z79.899 Other long term (current) drug therapy; Z79.02 Long term (current) use of antithrombotics/antiplatelets; I34.0 Nonrheumatic mitral (valve) insufficiency
CPT/HCPCS: 99283

== ENCOUNTER 2023-09-01 08:42 | Emergency (ER) | payer MEDICARE, MEDICAID, SELFPAY ==
[2023-09-01 08:44] VITALS: BP 165/83; PULSE 97; RESP 18; TEMP 36.1; O2SAT 96; BMI 31.8
--- NOTE | 2023-09-01 09:34 | EX.ED.DYSGE1 ---
HPI History of Present Illness Chief Complaint: Ear Problem Informant: patient Onset/Context/Timing Onset: Days (10) Context: Gradual Onset Timing: Continuous Quality: Stabbing Location: Left ear Worsened by: Nothing Relieved by: Drainage Narrative Narrative: Patient presents with left ear pain and drainage that has been getting worse over the past 10 days. Patient states she recently completed a course of amoxicillin for the ear infection. Patient states this has not helped. Patient describes his pain as stabbing. Patient admits to some drainage from his left ear. Patient states that when the ear drains it feels better. Patient denies any fevers or chills. Patient does admit to a sore throat and rhinorrhea. Patient states his pain does radiate into his jaw. [facility] Medical History (Updated 09/01/23 @ 10:[address] Javi Ortiz DO) Brain aneurysm Essential hypertension History of intracranial hemorrhage Non-rheumatic mitral regurgitation Tobacco use disorder Home Medications atorvastatin 40 mg tablet 40 mg PO QHS 02/21/19 [History Last Taken Unknown] clopidogrel 75 mg tablet 75 mg PO DAILY 02/21/19 [History Last Taken 06/23/19] lisinopril 40 mg tablet 40 mg PO DAILY 02/21/19 [History Last Taken 06/23/19] ciprofloxacin 0.2 %-hydrocortisone 1 % ear drops,suspension (Cipro HC) 3 drp LEFT EAR BID 7 days #10 mL 09/01/23 [Rx Last Taken Unknown] Allergy/AdvReac Type Severity Reaction Status Date / Time No Known Allergies Allergy Verified 09/01/23 08:44 Family History Father CAD (coronary artery disease) Myocardial infarction Brain aneurysm Brother Brain aneurysm Surgical History History of left heart catheterization (LHC) (~06/25/19) Social History Smoking Status: Unknown if ever smoked alcohol intake: current details: occasional substance use type: does not use caffeine: No ROS ROS ED Constitutional Constitutional ED: Denies chills or fever(s) Eyes Eyes: Denies blurry vision or change in vision ENT ENT ED: Reports ear pain left, rhinorrhea and sore throat Cardiovascular Cardiovascular: Denies chest pain or palpitations Respiratory/Chest Respiratory/Chest: Denies cough or dyspnea Gastrointestinal Gastrointestinal: Denies nausea or vomiting Genitourinary Genitourinary ED: Denies dysuria or hematuria Musculoskeletal Musculoskeletal: Denies back pain or neck pain Integumentary Denies abscess or rash Neurologic Neurologic: Denies headache(s) or weakness Allergic/Immunologic Allergic/Immunologic ED: Denies mouth swelling or urticaria EXAM Physical Exam Const Vital Signs: 09/01/23 08:44 Temperature 96.9 F L Temperature Source Temporal Pulse Rate 97 Respiratory Rate 18 Blood Pressure 165/83 H Blood Pressure Mean 110 Pulse Ox 96 Oxygen Delivery Method Room Air Positive well nourished and well developed General Appearance ED: well developed and NAD HEENT Reports moist mucous membranes Neck supple and no JVD Neck Narrative: There is edema and erythema of the left external auditory canal. Tympanic membrane was not visualized due to the edema. The right external auditory canal and tympanic membrane are clear. There is no mastoid tenderness or swelling. Resp normal respiratory effort and clear to auscultation bilaterally Cardio regular rate and regular rhythm Neuro oriented x3, CN's II-XII intact bilaterally and no sensory deficits noted Sensorium / Orientation: alert Motor Exam: strength 5/5 throughout Psych mental status grossly normal MDM MDM MDM Narrative Medical decision making narrative: Patient was advised that this is less likely an external otitis infection. Patient was given a prescription for Cipro HC otic drops. Patient was instructed to use these as prescribed. Patient was instructed to follow-up with his primary care physician and 5 to 7 days. Patient was instructed to take Tylenol or ibuprofen as needed for pain. Patient was instructed to return if worse in any way. Patient understood and was agreeable with the plan. All questions were answered. Discharge Plan Triage Chief Complaint: Ear Problem ED Provider: Javi Ortiz Dx/Rx/DC Orders Clinical Impression: Acute otitis externa of left ear Instructions: ED External Ear Infection (Adult) Prescriptions: New Cipro HC 0.2-1 % drops,suspension 3 drp LEFT EAR BID 7 Days Qty: 10 0RF No Action atorvastatin 40 MG tablet 40 mg PO QHS clopidogrel 75 MG tablet 75 mg PO DAILY Patient Comments: TAKE 1 TABLET BY MOUTH EVERY DAY lisinopril 40 MG tablet 40 mg PO DAILY Patient Comments: TAKE 1 TABLET BY MOUTH EVERY DAY Primary Care Provider: Luma Valenzuela Referrals: Luma Valenzuela, [Primary Care Provider] - 5-7 Days Disposition Disposition: Home, Self Care
== END 2023-09-01 10:17 | disposition home or self-care (01) ==
PROVIDERS: Emergency Provider Emergency Medicine; PCP Family Medicine; Visit Provider Emergency Medicine
DX: H60.92 Unspecified otitis externa, left ear (principal); I10 Essential (primary) hypertension; Z79.899 Other long term (current) drug therapy; Z79.02 Long term (current) use of antithrombotics/antiplatelets
CPT/HCPCS: 99282